=== PATIENT | male | born 1955 | race Caucasian/White ===

== ENCOUNTER → 2018-06-21 | Outpatient (CLI) | payer MEDICARE, OTHER ==
--- NOTE | 2018-06-21 19:44 | CONS ---
CONSULTATION REASON FOR CONSULTATION: Sleep apnea. CLINICAL INFORMATION: A 63-year-old male patient with Parkinson disease, who has been having excessive daytime sleepiness and fatigue and tiredness. Current [place] Score is 18. He sleeps while sitting and watching TV. He can easily fall asleep whenever he is inactive. He lays down to rest in the afternoon and he can easily fall asleep. He snores. He has been told to stop breathing by his . He goes to bed between 8:30 to 9 p.m. and wakes up around 4 a.m. in the morning. He has resting tremors, is quite restless at nighttime. No aggressive behavior or violent behaviors. He wakes up with dry mouth. He was referred for further investigation regarding the possibility of obstructive sleep apnea. PAST MEDICAL HISTORY: 1. Parkinson disease. 2. Depression. 3. Diabetes mellitus. 4. Cervical and lumbar disk disease. 5. Hypogonadism. 6. Hyperlipidemia. 7. Osteoporosis. 8. Peripheral neuropathy. 9. Chronic constipation. PAST SURGICAL HISTORY: Lumbar laminectomy. DRUG ALLERGIES: LISINOPRIL, . OUTPATIENT MEDICATION: 1. Mirapex 1.5 mg 3 times a day. 2. Sinemet 25/100 three times a day. 3. [place] 7.5, five times a day. 4. Prozac 40 mg p.o. daily. 5. Pravastatin 4 mg p.o. daily. 6. Insulin 70/30. 7. Metformin 1 g twice a day. SOCIAL HISTORY: Used to smoke 2 packs of cigarettes a day. Currently smoking 1 pack of cigarettes a day. Drinks alcohol socially. No history of IV drugs. FAMILY HISTORY: Negative for sleep apnea. Daughter from complications of breast cancer at a young age. REVIEW OF SYSTEMS: A 12-point review of system was done. No falls. His Parkinson symptoms are gradually getting worse. He is developing progressive dementia and motor stiffness and instability and gait dysfunction. No grinding of the teeth. No violent behavior at nighttime. No sleepwalking or sleep talking. No symptoms to suggest parasomnias or REM behavior disorder. No heartburn, no palpitations. PHYSICAL EXAMINATION: BP is 100/66, pulse 68, respirations 16, temperature 98.1, saturation 98% on room air. Weight is 311, height 5 feet 8 inches, BMI 36.4, neck size 18 inches. GENERAL APPEARANCE: Calm and comfortable. Head is atraumatic, normocephalic. NECK: Supple. Mallampati class IV. There is no goiter neck mass. LUNGS: Clear to auscultation. HEART: Sounds regular rhythm. Normal S1, S2. No S3, S4. No murmurs. ABDOMEN: Soft, nontender. No organomegaly. EXTREMITIES: No edema. No cyanosis or clubbing. NEUROLOGIC: Positive for resting tremors and shuffling gait and ataxia related to Parkinson disease. SKIN: Negative for any wounds or ulceration. PSYCH: Positive depression. IMPRESSION: 1. Chronic hypersomnia, probably due to combination of obstructive sleep apnea and Parkinson disease. Drug affect may be also contributing to his increased sleepiness. Current [place] score is 18. 2. Obesity with body mass index of 36.4. 3. Parkinson disease. 4. Depression. 5. Diabetes mellitus. 6. Hypogonadism. 7. Hyperlipidemia. 8. Osteoporosis. 9. Peripheral neuropathy. 10.Chronic pain related to cervical and lumbar disk disease. PLAN: 1. Continue same medications. 2. Undergo a screening polysomnogram looking for any significant sleep breathing disorder that can be treated to help this patient's symptoms in general. I will treat only if the patient has moderate to severe sleep apnea. 3. Encourage weight loss. 4. Implement good sleep hygiene measures. 5. We will continue to follow. MMODL / IJN: [id number] /
== END ==
LOC: SLEEP 13:26
PROVIDERS: ATTEND Internal Medicine Critical Care Medicine
DX: G20 Parkinson's disease (principal); E66.9 Obesity, unspecified; F32.9 Major depressive disorder, single episode, unspecified; E11.9 Type 2 diabetes mellitus without complications; E78.5 Hyperlipidemia, unspecified; E29.1 Testicular hypofunction; M81.0 Age-related osteoporosis without current pathological fracture; G62.9 Polyneuropathy, unspecified; G89.29 Other chronic pain; M50.30 Other cervical disc degeneration, unspecified cervical region; M51.36 Other intervertebral disc degeneration, lumbar region; F17.200 Nicotine dependence, unspecified, uncomplicated; Z79.899 Other long term (current) drug therapy; Z79.4 Long term (current) use of insulin; Z79.84 Long term (current) use of oral hypoglycemic drugs; Z79.891 Long term (current) use of opiate analgesic; Z88.8 Allergy status to other drugs, medicaments and biological substances
CPT/HCPCS: 99211

== ENCOUNTER → 2018-11-15 | Outpatient (CLI) | payer MEDICARE, OTHER ==
--- NOTE | 2018-11-15 17:34 | PN ---
PROGRESS NOTE This is a 63-year-old male patient coming in for a compliancy check. He has a history of Parkinson's disease. The patient was having increased fatigue and sleepiness during the day. For that reason, a screening polysomnogram was done, and the patient was diagnosed having obstructive sleep apnea that was moderate in severity with an AHI of 20, worse in the supine body position. The patient, however, had marked abnormalities in sleep architecture with over-representation of stage I and stage II sleep along with diminished delta wave and REM. Sleep was very fragmented. He also demonstrated periodic limb movements, excessive, with some arousals related to PLMS. As mentioned, the patient has Parkinson's disease, depression, diabetes mellitus and hypogonadism. On today's evaluation, the patient is using his CPAP. The patient has an APAP, minimum pressure of 5, maximum pressure of 20. The patient has been averaging about 6.7 hours of APAP use per night. His APAP use for more than 4 hours is 100%. Average pressure is around 10.6, and the patient's leak is around 106 L/minute while using the AirFit F20 full-face mask. AHI is down to 2.9. Clinically the patient is feeling better. His has noted that his level of alertness has improved. His only complaint is leaks around the mask. The patient is essentially leaking from the inferior border of the full-face mask. REVIEW OF SYSTEMS: Twelve-point review of systems was done. The patient has diffuse slowing related to , hypersomnia, fatigue, altered memory. No nausea. No vomiting. No chest pain. No heartburn. No shortness of breath. The patient has excessive limb movements related to Parkinson's. Twelve-point review of systems was done. Positive findings were all mentioned above in the history of present illness. PHYSICAL EXAMINATION: BP is 96/62, pulse 72, respirations 16, temperature 97.9, and weight is 215. Saturation 96% on room air. BMI 31.8. GENERAL APPEARANCE: Calm, comfortable. Head is atraumatic, normocephalic. NECK: Supple. No JVD. No goiter or neck masses. LUNGS: Clear to auscultation. Heart sounds are regular rate and rhythm. Normal S1, S2. No S3, S4. No murmurs. ABDOMEN: Soft, non-tender. No organomegaly. EXTREMITIES: No edema. No cyanosis or clubbing. Neurologically he has rigidity along with resting tremors. SKIN: Negative for any wounds or IMPRESSION: 1. Obstructive sleep apnea with apnea/hypopnea index of , worse in a supine body position, for which the patient is currently on APAP. Minimum pressure 5, maximum 20. He is being treated successfully. 2. Abnormalities in sleep architecture with over-representation of stage I and stage II sleep with diminished delta wave and REM with excessively fragmented sleep. 3. Parkinson's disease . 4. Chronic hypersomnia. 5. Depression. 6. Diabetes. 7. Hypogonadism. PLAN: I explained to the patient the benefits of APAP treatment. The patient has already been seeing the benefit and would like to continue the APAP treatment for now. Note that there are increased mask leaks, and for that reason I gave the patient a full-face mask, AirFit F20, large size, which had a better fit on his lower lip, and I am hoping that the leaks will improve with this large-sized mask. His AHI is down to 2.9. He is successfully treated. Sleep on this side. Implement good sleep hygiene measures. He is averaging more than 6 hours of APAP use per night. Continue treatment and see me back in 6 months' time in followup, earlier if needed. MMSAMMYL / IJN: [id number] /
== END | disposition home or self-care (01) ==
LOC: SLEEP 13:29
PROVIDERS: ATTEND Internal Medicine Critical Care Medicine
DX: G47.33 Obstructive sleep apnea (adult) (pediatric) (principal); G20 Parkinson's disease; F32.9 Major depressive disorder, single episode, unspecified; E11.9 Type 2 diabetes mellitus without complications; E29.1 Testicular hypofunction; Z99.89 Dependence on other enabling machines and devices

== ENCOUNTER → 2019-06-06 | Outpatient (CLI) | payer MEDICARE, OTHER ==
--- NOTE | 2019-06-06 18:34 | PN ---
PROGRESS NOTE This patient is coming in for an annual check regarding his obstructive sleep apnea. In fact, the last evaluation found to be on 11/15/2018. The patient had an AHI of 20. He has Parkinson disease. He is on APAP, minimum of 5, maximum 20 cm of water. He is doing extremely well. He is trying to become more compliant. He is benefitting from the treatment. He is waking up much more refreshed and alert during the day. His average APAP pressure is around 8.4, he is utilizing his APAP more than 80% of the time. His average use is around 5.8 hours per night. His leak at 3 L per minute and his AHI is down to 2.8. He has no specific complaints for now. He is using AirFit F20 large size full-face mask and he is asking for his mask to be renewed. His weight has been stable. Overall, he is happy with his treatment and he wants to continue with the treatment. REVIEW OF SYSTEMS: Fourteen-point review of system was done. Positive findings are mentioned above in history of present illness. No significant dementia. He has got resting tremors and rigidity related to his Parkinson's. No falls. No headache. No altered mentation. No chest pain. No shortness of breath. No heartburn. GENERAL APPEARANCE: Calm, comfortable in no acute distress. HEAD is atraumatic, normocephalic. NECK: Supple. No JVD. No goiter or neck masses. LUNGS: Clear to auscultation. HEART: Sounds regular rate and rhythm. Normal S1, S2. No murmurs. ABDOMEN: Soft, nontender. No organomegaly. EXTREMITIES: No edema. No cyanosis or clubbing. NEUROLOGIC: Alert and oriented x3. No focal neurological deficits. PSYCHIATRIC: Negative for anxiety or depression. SKIN is negative for any wounds or ulceration. PHYSICAL EXAMINATION: BP is 127/72, pulse 72, respirations 16, temperature 98.3. Saturation 97% on room air. Height is 5 feet 10 inches, weight is 207. BMI 30.5. IMPRESSION: 1. Symptomatic obstructive sleep apnea with an AHI of 20 currently on APAP with excellent clinical response and compliance. 2. Parkinson's disease. 3. Chronic hypersomnia, improved. 4. Depression. 5. Diabetes. 6. Hypogonadism. PLAN: 1. Continue APAP at same level of pressure. 2. Renew his AirFit F 20 large size full-face mask. 3. Tight control of cardiovascular risk factors. 4. Follow up with Neurology regarding his restlessness and Parkinson's. 5. We will continue to follow. See me back in a year's time, earlier if needed. LIZ / RAMON: [id number] /
== END ==
LOC: SLEEP 13:05
PROVIDERS: ATTEND Internal Medicine Critical Care Medicine
DX: G47.33 Obstructive sleep apnea (adult) (pediatric) (principal); G20 Parkinson's disease; F32.9 Major depressive disorder, single episode, unspecified; E11.9 Type 2 diabetes mellitus without complications; E29.1 Testicular hypofunction; Z99.89 Dependence on other enabling machines and devices

== ENCOUNTER → 2020-05-23 | Outpatient (CLI) | payer MEDICARE, OTHER ==
--- NOTE | 2020-05-23 15:51 | XR ---
EXAMINATION TYPE: XR lumbosacral spine min 4V DATE OF EXAM: 05/23/2020 CLINICAL HISTORY: Fall, pain. TECHNIQUE: Frontal, lateral, and oblique images of the lumbar spine are obtained. COMPARISON: Lumbar radiograph 09/09/2016 FINDINGS: Postsurgical laminectomy and fixation changes include posterior fixation rods and bilateral transpedicular screws of L3-L5, with L3-L4 and L4-L5 interbody spacer devices. No evidence of hardwa re fracture or loosening There are 5 lumbar type vertebral bodies identified. The lumbar spine shows satisfactory alignment without evidence of acute fracture or dislocation. Vertebral body heights are within normal limits. Multilevel endplate osteophytic spurring. No evidence of spondylolisthesis. Ao rtic calcified atherosclerotic disease. IMPRESSION: 1. No acute fracture or dislocation is seen in the lumbar spine. 2. Postsurgical fixation changes from L3 through L5.
--- NOTE | 2020-05-23 15:52 | XR ---
EXAMINATION TYPE: XR Hip Complete RT DATE OF EXAM: 05/23/2020 CLINICAL HISTORY: Fall, pain TECHNIQUE: AP and frogleg views of the right hip are obtained. COMPARISON: None. FINDINGS: There is no acute fracture or dislocation of the right hip. The hip joint space is mainta ined. The overlying soft tissue appears unremarkable. IMPRESSION: There is no acute fracture or dislocation of the right hip.
== END | disposition home or self-care (01) ==
LOC: RADXRYALE 14:57
PROVIDERS: ATTEND Physician Assistant
DX: M48.061 Spinal stenosis, lumbar region without neurogenic claudication (principal); M25.551 Pain in right hip; Z98.890 Other specified postprocedural states
CPT/HCPCS: 72110; 73502